=== PATIENT | male | born 1935 | race Caucasian/White ===

== ENCOUNTER → 2016-10-13 | Day surgery (SDC) | payer OTHER ==
[~2016-10-13] VITALS: Ht 172.7 cm; Wt 79.4 kg
[~2016-10-13] MED LIST: ASPIRIN EC81 M1 PO; LEVOTHYROXINE125 MCG PO; PROCARDIA XL30 M1 PO; TRAVATAN Z5 ML OD
--- NOTE | 2016-10-13 13:42 | Operative Report ---
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 These began in March and occurred multiple times between then and this past week. In fact when the patient laid down on the operating table today was obvious that there was a little bit of hemorrhage in the anterior chamber. It was presumed that these recurrent hemorrhages were from irritation from the intraocular lens a rubbing up against the back of the iris. Specifically there was iris atrophy nasally where the lens haptic was positioned. Lastly it could be noted that ther was phacodonesis of the lens bag complex on examination in the office. A decision was therefore made after medically treating multiple incidences of these hyphemas to try and either reposition or exchange the lens. The patient was consented for this and brought to the operating room and standard monitoring equipment was attached. The patient was prepped and draped in the usual fashion for sterile intraocular surgery. The case was begun by making 2 paracentesis sites at 8 and 10:00 on the eye. As this was a right eye. Intraocular non- preserved lidocaine was introduced into the anterior chamber and the anterior chamber was deepened with viscoelastic the lens partially prolapsed forward confirming the suspicion that it was somewhat mobile and contacting the back of the iris Dissection was done to free upp one of the haptics from the capsular bag. However the second haptic could not be freed from the capsular bag. At this point it was obvious that the lens could not be repositioned and would need to be exchanged. Attention was then turned to create a main incision temporally. This was done by opening the conjunctiva with Leonor's scissors and 0.12 forceps. A modified peribulbar block using 0.75 Marcaine and 2% lidocaine was then introduced subconjunctivaly and shearer-tenon's to achieve additional anesthesia. The sclera was cleaned off using wet field cautery and a 6 mm groove was made with a crescent blade. This was then used to tunnel into clear cornea to ibis a 6 mm incision. Incision was then opened into the anterior chamber using a 2.4 mm keratome which was slid across the width of the scleral bed enlarging incision. Additional viscoelastic was placed below and above the lens and the lens was removed from the eye using a forceps. As expected vitreous gel presented during thismaneuver and so an anterior mechanical vitrectomy was performed to clear vitreous from in front and behind the iris plane and from the wound. Miochol was used to bring down the pupil which came down in a rounded fashion. The lens an LQHA5AV 17.0 D was selected and placed into the anterior chamber. During suturing of the wound it was determined that this lens was too small as it was not staying in a fixed position. A decision was made to remove this lens and the same power but in the 4UO size was then exchangd for it. The main incision was then sutured with 5 10-0 nylon sutures whose knots were trimmed and buried. It should be noted that an iridotomy was created superiorly using the vitrectomy unit while the vitrectomy was being done earlier. Once the main wound was closed the paracentesis sites were sealed with balanced salt solution. All 3 wounds were found not to be leaking. The lens was in good position and the pupil was round. The eye was then shielded over antibiotic steroid ointment after lid speculum was removed from the orbit the patient tolerated the procedure well and will be seen in the office tomorrow.
== END ==
LOC: STS 02:00
DX: T85.29XA Other mechanical complication of intraocular lens, initial encounter (principal); H43.01 Vitreous prolapse, right eye; H21.01 Hyphema, right eye; E03.9 Hypothyroidism, unspecified
CPT/HCPCS: J2001; J2250; V2632